=== PATIENT | male | born 1985 | race American Indian/Alaskan Native ===

== ENCOUNTER 2020-02-09 09:39 | Emergency (ER) | payer SELFPAY ==
[2020-02-09 10:06] VITALS: BP 133/77
--- NOTE | 2020-02-09 11:43 | Emergency Department Report ---
ED General Adult HPI - General Chief complaint: Abdominal Pain Stated complaint: REFERRAL TO [facility] Time Seen by Provider: 02/09/20 10:41 Source: patient Mode of arrival: Ambulatory Limitations: No Limitations - History of Present Illness Initial comments: Patient is a 34-year-old male who presents emergency room with complaints of hemorrhoids that he has had chronically but began bothering him again a couple of days ago. He states that he sees a small amount of bright red blood with wiping. he states he does experience some rectal discomfort with sitting. He states that he has been straining to have a bowel movement and feels constipated but is still having bowel movements but only small amounts. He states that he has some mild abdominal discomfort and just feels like he needs to have a bowel movement. He is tolerating p.o. intake. He denies any nausea, vomiting, diarrhea, fever. He denies any other past medical history. No allergies to medications. He states he was previously seeing a doctor in [place] for this complaint and was supposed to follow-up with a GI doctor but ended up moving here and did not get a chance to follow-up. - Related Data Previous Rx's Medication Instructions Recorded Last Taken Type Docusate Sodium [Colace] 100 mg PO BID PRN #20 capsule 02/09/20 Unknown Rx Hydrocortisone [Anucort-HC SUPPOS] 25 mg RC BID #12 supp.rect 02/09/20 Unknown Rx Polyethylene Glycol 3350 [Miralax] 7 gm PO DAILY #1 powder 02/09/20 Unknown Rx Allergies Allergy/AdvReac Type Severity Reaction Status Date / Time No Known Allergies Allergy Unverified 02/09/20 10:05 ED Review of Systems ROS: Stated complaint: REFERRAL TO [facility] Other details as noted in HPI Comment: All other systems reviewed and negative ED Past Medical Hx - Past Medical History Previous Medical History?: No - Surgical History Past Surgical History?: No - Medications Home Medications: Home Medications Medication Instructions Recorded Confirmed Last Taken Type Docusate Sodium [Colace] 100 mg PO BID PRN #20 capsule 02/09/20 Unknown Rx Hydrocortisone [Anucort-HC SUPPOS] 25 mg RC BID #12 supp.rect 02/09/20 Unknown Rx Polyethylene Glycol 3350 [Miralax] 7 gm PO DAILY #1 powder 02/09/20 Unknown Rx ED Physical Exam - General Limitations: No Limitations General appearance: alert, in no apparent distress - Head Head exam: Present: atraumatic, normocephalic - Eye Eye exam: Present: normal appearance - ENT ENT exam: Present: mucous membranes moist - Respiratory Respiratory exam: Present: normal lung sounds bilaterally. Absent: respiratory distress, wheezes, rales, rhonchi, stridor, chest wall tenderness, accessory muscle use, decreased breath sounds, prolonged expiratory - Cardiovascular Cardiovascular Exam: Present: regular rate, normal rhythm, normal heart sounds. Absent: systolic murmur, diastolic murmur, rubs, gallop - Rectal Rectal exam: Present: other (internal hemorrhoid on exam, no external hemorrhoid, no gross blood, no fluctuance, erythema, or induration, steel roller: abida Roman) - Neurological Exam Neurological exam: Present: alert, oriented X3 - Psychiatric Psychiatric exam: Present: normal affect, normal mood - Skin Skin exam: Present: warm, dry, intact ED Course Vital Signs 02/09/20 10:06 Temperature 97.6 F Pulse Rate 96 H Respiratory 16 Rate Blood Pressure 133/77 [Right] O2 Sat by Pulse 100 Oximetry ED Medical Decision Making - Medical Decision Making Patient is a 34-year-old male who presents emergency room with complaints of hemorrhoids that he has had chronically but began bothering him again a couple of days ago. He states that he sees a small amount of bright red blood with wiping. he states he does experience some rectal discomfort with sitting. He states that he has been straining to have a bowel movement and feels constipated but is still having bowel movements but only small amounts. He states that he has some mild abdominal discomfort and just feels like he needs to have a bowel movement. He is tolerating p.o. intake. He denies any nausea, vomiting, diarrhea, fever. He denies any other past medical history. No allergies to medications. He states he was previously seeing a doctor in [place] for this complaint and was supposed to follow-up with a GI doctor but ended up moving here and did not get a chance to follow-up. VSS. on exam: internal hemorrhoid on exam, no external hemorrhoid, no gross blood, no fluctuance, erythema, or induration, steel roller: abida Roman. Examination consistent with hemorrhoids. Patient states that he sees a small amount of bright red blood with wiping but denies any hematochezia or melena, he denies any heavy bleeding. He has no clinical signs of abscess, he is not significantly bleeding and his vitals are normal do not suspect emergent anemia, he has no abdominal tenderness on exam, he is well appearing. Patient given prescription for Anusol suppository, MiraLAX, Colace. Patient be referred to GI doctor, discussed the importance of follow-up with patient. Patient also referred to primary care physician. Advised patient Please use medication as prescribed. Please follow-up with your primary care doctor. Please follow-up with a GI doctor. Increase your water intake. Increase your fiber intake. Return to emergency room for any new or worsening symptoms. Critical care attestation.: If time is entered above; I have spent that time in minutes in the direct care of this critically ill patient, excluding procedure time. ED Disposition Clinical Impression: Rectal pain Constipation Qualifiers: Constipation type: unspecified constipation type Qualified Code(s): K59.00 - Constipation, unspecified Hemorrhoid Qualifiers: Hemorrhoid type: unspecified Qualified Code(s): K64.9 - Unspecified hemorrhoids Disposition: - TO HOME OR SELFCARE Is pt being admited?: No Does the pt Need Aspirin: No Condition: Stable Instructions: Constipation (ED), Hemorrhoids (ED), High Fiber Diet (ED) Additional Instructions: Please use medication as prescribed. Please follow-up with your primary care doctor. Please follow-up with a GI doctor. Increase your water intake. Increase your fiber intake. Return to emergency room for any new or worsening symptoms. Prescriptions: Hydrocortisone [Anucort-HC SUPPOS] 25 mg RC BID #12 supp.rect Docusate Sodium [Colace] 100 mg PO BID PRN #20 capsule PRN Reason: Constipation Polyethylene Glycol 3350 [Miralax] 7 gm PO DAILY #1 powder Referrals: CARLINE CORDOVA MD [Staff Physician] - 2-3 Days [facility] [Provider Group] - 2-3 Days [facility] [address], [LAB/CONTRACT] - 2-3 Days [facility] [Provider Group] - 2-3 Days Forms: Work/School Release Form(ED) Time of Disposition: 11:41 Print Language: ITALIAN
== END 2020-02-09 11:55 | disposition home or self-care (01) ==
LOC: ED 09:39
DX: K64.9 Unspecified hemorrhoids (principal); K62.89 Other specified diseases of anus and rectum; K59.00 Constipation, unspecified; Z79.899 Other long term (current) drug therapy
CPT/HCPCS: 99282